=== PATIENT | female | born 1995 | race Two or more races ===

== ENCOUNTER 2018-12-20 11:40 | Inpatient (IN) | payer OTHER ==
[~2018-12-20] VITALS: Ht 170.2 cm; Wt 92.2 kg
[2018-12-20] VITALS (10 sets, daily range): BP systolic 109–118; BP diastolic 61–69; PULSE 68–73; RESP 19–20; Ht 170.2 cm; Wt 92.2 kg
[2018-12-20] MEDS ORDERED: PNV11TAB PO (11:58)
[2018-12-20] MEDS ORDERED: MISOPROSTOL 200 MCG TAB PR PRN ×2 (12:30→19:30)
[2018-12-20] MEDS ORDERED: CEFAZOLIN 2 GM/50 ML (PMX) 50 ML IVPB SCH (12:30)
[2018-12-20] MEDS ORDERED: OXYTOCIN 30 UNITS/LR 500 ML IV SCH ×2 (12:30→19:01)
[2018-12-20] MEDS ORDERED: METHYLERGONOVINE 0.2 MG INJ IM PRN ×2 (12:30→19:30)
[2018-12-20] MEDS ORDERED: OXYTOCIN 30 UNITS/LR 500 ML IV PRN ×2 (12:30→19:30)
[2018-12-20] MEDS ORDERED: CARBOPROST 250 MCG INJ IM PRN ×2 (12:30→19:30)
[2018-12-20] MEDS ORDERED: ONDANSETRON 4 MG INJ IV ONE (16:00)
[2018-12-20] MEDS ORDERED: METOCLOPRAMIDE 10 MG INJ IV ONE (16:00)
[2018-12-20] MEDS ORDERED: FAMOTIDINE 20 MG INJ IV ONE (16:00)
[2018-12-20] MEDS: LACTATED RINGER'S 1,000 ML IV SCH ×2 (16:32→16:59)
--- NOTE | 2018-12-20 16:36 | PREAC ---
Date/Time of Note Date/Time of Note DATE: 12/20/18 TIME: 16:34 Anesthesia Eval and Record Evaluation Time Pre-Procedure Interview DATE: 12/20/18 TIME: 16:34 Age 23 Sex female NPO: 8 hrs Preoperative diagnosis term Planned procedure previous Csection Past Medical History Past Medical History: None : : (5) Surgery & Anesthesia Issues No known issue Meds Anticoagulation: No Beta Shekhar within 24 hr: No Reason Beta Shekhar not given: Pt. not on B-Shekhar Reported Medications [id number] ( 19) 1 Each Tablet, 1 TAB PO DAILY, TAB 12/20/18 Current Medications Lactated Ringer's 1,000 ml @ 125 mls/hr Q8H IV Last administered on 12/20/18at 16:32; Admin Dose 125 MLS/HR; Start 12/20/18 at 12:24 Cefazolin Sodium/ Dextrose 50 ml @ 100 mls/hr ONCE IVPB ; Start 12/20/18 at 12:30 Oxytocin/Lactated Ringer's 500 ml @ 125 mls/hr POST IV ; Start 12/20/18 at 12:30 Oxytocin/Lactated Ringer's 500 ml @ 0 mls/hr ONCE PRN IV .VAGINAL BLEEDING; Start 12/20/18 at 12:30 Methylergonovine Maleate (Methergine) 0.2 mg ONCE PRN IM .VAGINAL BLEEDING; Start 12/20/18 at 12:30 Carboprost Tromethamine (Hemabate) 250 mcg ONCE PRN IM .VAGINAL BLEEDING; Start 12/20/18 at 12:30 Misoprostol (Cytotec) 1,000 mcg ONCE PRN [place] .VAGINAL BLEEDING; Start 12/20/18 at 12:30 Meds reviewed: Yes Allergies Coded Allergies: No Known Allergy (Unverified , 12/20/18) Allergies Reviewed: Yes Labs/Studies Labs Reviewed: Reviewed by anesthesiologist Result Diagram: 12/20/18 1300 Laboratory Tests 12/20/18 13:00 Blood Bank Test 12/20/18 13:00 Antibody Identification Completed Antibody Screen POSITIVE Blood Type A POSITIVE Rh Immune Globulin Candidate NO test: Positive Pre-procedure Exam Last vitals Vital Signs Date Temp Pulse Resp B/P (MAP) Pulse Ox O2 O2 Flow FiO2 Time Delivery Rate 12/20/18 98.3 73 109/61 11:56 (77) Airway: Adequate mouth opening, Adequate thyromental dist Mallampati: Mallampati III Teeth: Normal Lung: Normal Heart: Normal ASA Physical Status ASA physical status: 2 Emergency: None Planned Anesthetic Neuraxial: Spinal Planned Pain Management Sub-arachniod narcotics, Parenteral pain med, Other neuraxial med Pre-operative Attestations Prior to commencing anesthesia and surgery, the patient was re-evaluated, there was verification of: *The patient's identity *The results of appropriate recent lab work and preoperative vital signs *The above evaluation not changing prior to induction *Anesthetic plan, risk benefits, alternative and complications discussed with patient/family; questions answered; patient/family understands, accepts and wis hes to proceed. JAIRO CENTENO MD Dec 20, 2018 16:35
[2018-12-20] MEDS ORDERED: morphine SULFATE/PF (10 MG/10 ML) INJ ONE (16:54)
[2018-12-20] MEDS ORDERED: OXYTOCIN 10 UNIT INJ ONE (16:54)
[2018-12-20] MEDS ORDERED: BUPIVACAINE 0.75%/DEXT (SPINAL) 2 ML INJ ONE (16:58)
[2018-12-20] MEDS ORDERED: KETOROLAC 30 MG INJ IV PRN ×2 (17:00)
[2018-12-20] MEDS ORDERED: DIPHENHYDRAMINE 50 MG INJ IV PRN ×2 (17:00)
[2018-12-20] MEDS ORDERED: HYDROmorphONE 0.5 MG/0.5 ML SYG IV PRN ×2 (17:00)
[2018-12-20] MEDS ORDERED: ZOLPIDEM 5 MG TAB PO PRN (17:00)
[2018-12-20] MEDS ORDERED: FENTAnyl 50 MCG/ML VIAL IV PRN ×2 (17:00)
[2018-12-20] MEDS ORDERED: HYDROmorphONE 1 MG/5 ML IV SYRINGE IV PRN ×3 (17:00)
[2018-12-20] MEDS ORDERED: ONDANSETRON 4 MG INJ IV PRN ×2 (17:00)
[2018-12-20] MEDS ORDERED: NALOXONE (0.4 MG/ML) INJ IV PRN (17:00)
--- NOTE | 2018-12-20 17:56 | PREOPHP ---
DATE OF ADMISSION: 12/20/2018 HISTORY OF PRESENT ILLNESS: This is a 23-year-old lady, 8, para 4 with 3 spontaneous abortio ns. Her EDC is 12/30/2018 at 38 and 3/7 weeks, admitted to labor and delivery area in early labor. She started to have contractions about a few hours prior to admission with some bloody discharge. Jeff marshall had care couple of times in my [place] office and the care was uneventful. She h ad 4 C-sections. She is for repeat . She is not for the tubal ligation. Also, this patien t was informed about the risks of placenta accreta and bleeding that she may go for hyster ectomy and patient is aware, so she signed the consent for repeat plus possible hysterectom y. The procedures were explained to her and she understood everything totally. The risks, benefits and alternatives were discussed with her as well. PAST PERSONAL HISTORY: No history of TB, asthma. ALLERGIES: NO ALLERGIES. SOCIAL HISTORY: The patient does not smoke. She does not drink. MEDICATIONS: She does not take any drugs except her: 1. Iron. 2. Vitamins. GYNECOLOGIC HISTORY: She had menarche at the age of 13, every 28 days interval, 3 to 4 days duration and moderate in amount. FAMILY HISTORY: Noncontributory. OBSTETRIC HISTORY: She is 8, para 4. Her first delivery was in 2011, second 2012, third 201 , fourth 2016; all by C-sections. She had 3 spontaneous abortions. The patient does not remember w hen. REVIEW OF SYSTEMS: CARDIOVASCULAR: No chest pains. RESPIRATORY: No cough. GASTROINTESTINAL: No diarrhea, no vomiting. GENITOURINARY: No dysuria. PHYSICAL EXAMINATION: GENERAL: Reveals a conscious, coherent lady and in no acute distress. VITAL SIGNS: Her blood pressure 120/80, pulse rate 80 per minute, respirations 16 per minute. BREASTS, HEART AND LUNGS: Within normal limits. ABDOMEN: Soft. No tenderness noted. Fundic height is 37 cm. heart tones are 140 per minute. PELVIC: On admission revealed the cervix to be 1 cm dilated and thick, station floating, in cephalic presentation with the bag of water intact. EXTREMITIES: No pedal edema. GENITOURINARY: Vaginal spotting noted. ADMITTING DIAGNOSIS: A 38 and 3/7 weeks' intrauterine with 4 previous in early l abor. The patient was planned to have the above procedure. Dictated By: KANNAN DELGADO/LE Conf#: [id number] DID#: [id number]
[2018-12-20] MEDS ORDERED: LACTATED RINGER'S 1,000 ML IV SCH (19:01)
--- NOTE | 2018-12-20 19:01 | OPPN ---
Date/Time of Note Date/Time of Note DATE: 12/20/18 TIME: 18:57 Operative Report Planned Procedure Procedure date Dec 20, 2018 Procedure(s) REPEAT CSECTION Performed by see signature line Gold Frame Assembler: JUAN MIGUEL DE LA ROSA MD 2nd Gold Frame Assembler none Pre-procedure diagnosis 38 WEEKS 3 DAYS PREVIOUS CSECTION IN LABOR [id number] Anesthesia Type: [id number] spinal Post-Procedure Post-procedure diagnosis 38 WEEKS 3 DAYS PREVIOUS CSECTION IN LABOR Findings Live Baby GIRL, Apgars 9and 9, weight 7LBS 11OZ 19 1/2 INCHES Estimated Blood Loss: other (800) Specimen(s) PLACENTA Grafts/Implant(s) none Complication(s) none KANNAN VILLEDA MD Dec 20, 2018 19:01
[2018-12-20] MEDS ORDERED: LANOLIN HPA 1 PKT TOP PRN (19:30)
[2018-12-20] MEDS ORDERED: METHYLERGONOVINE 0.2 MG TAB PO PRN (19:30)
[2018-12-20] MEDS: SENNA/DOCUSATE NA (8.6MG/50MG) TAB PO SCH (21:00)
--- NOTE | 2018-12-20 21:59 | PAC ---
Date/Time of Note Date/Time of Note DATE: 12/20/18 TIME: 21:59 Post-Anesthesia Notes Post-Anesthesia Note Last documented vital signs Vital Signs Date Temp Pulse Resp B/P (MAP) Pulse Ox O2 O2 Flow FiO2 Time Delivery Rate 12/20/18 70 20 114/65 99 Room Air 21:00 (81) 12/20/18 98.0 19:30 Activity: WNL Respiratory function: WNL Cardiovascular function: WNL Mental status: Baseline Pain reasonably controlled: Yes Hydration appropriate: Yes Nausea/Vomiting absent: Yes JAIRO CENTENO MD Dec 20, 2018 21:59
[2018-12-21 01:20] VITALS: BP 103/65; PULSE 78; RESP 20
[2018-12-21 03:30] VITALS: BP 111/64; PULSE 76; RESP 21
[2018-12-21] MEDS: LACTATED RINGER'S 1,000 ML IV SCH ×3 (04:24→20:24)
[2018-12-21 08:00] VITALS: BP 108/59; PULSE 86; RESP 18
[2018-12-21] MEDS: SENNA/DOCUSATE NA (8.6MG/50MG) TAB PO SCH ×2 (09:03→21:20)
[2018-12-21 12:35] VITALS: BP 112/60; PULSE 80; RESP 20
[2018-12-21 15:31] VITALS: BP 109/51; PULSE 90; RESP 18
--- NOTE | 2018-12-21 17:43 | OPR ---
DATE OF OPERATION: 12/20/2018 PREOPERATIVE DIAGNOSIS: 38 and 4/7 weeks intrauterine in labor for previous secti on. POSTOPERATIVE DIAGNOSES: 1. 38 and 4/7 weeks intrauterine in labor for previous section. 2. Severe pelvic and abdominal adhesions. SURGEON: Kannan Shah MD SAP BW ARCHITECT: Sandrine Katz MD ANESTHESIA: Spinal. ANESTHESIOLOGIST: Dr. Gonzales. OPERATION PERFORMED: Repeat low transverse section plus lysis of severe pelvic and abdomina l adhesions. OPERATIVE TECHNIQUE: Under spinal anesthesia, the patient was prepped and draped in the usual fashio n for abdominal surgery. After checking for the effect of the anesthesia, the previous Pfannenstiel scars were excised. A 12 cm skin incision was performed. The incision was carried from the skin up to the fascia. Upon opening the skin up to the fascia, small blood vessels were noted to be oozing a nd these were all cauterized. Fascia was opened transversely followed by splitting the muscles verti fatemeh and the peritoneum vertically. Upon opening the abdominal cavity, the peritoneum was opened ab out 1 inch and a thick band of adhesion was noted from the anterior parietal peritoneum to the mid-po rtion of the uterus going to the lower uterine segment. All these adhesions had to be lysed by sharp and blunt dissection. Omentum was attached to the anterior parietal peritoneum as well. After lysi ng all these adhesions, then the bladder blade was put in place. A small juan was performed from the serosa up to the endometrium and the lower uterine segment and the juan was carried sideways with th e aid of my two fingers. My left hand was inserted in the lower segment of the uterus and the bag of water was ruptured. 1+ meconium stained amniotic fluid was noted. Baby's head was delivered and ba by's airways was quickly suctioned with amniotic fluid. The anterior shoulder, posterior shoulder an d rest of the body of the baby was delivered. Cord was clamped after 30 seconds. The baby's airways was quickly suctioned with amniotic fluid. Then, after 30 seconds, the cord was clamped and the bab y was handed to the NICU team. Cord blood was obtained. Placenta was delivered manually and complet e. The uterus was exteriorized. The uterus was cleansed with wet lap sponge to make sure that no fe sarah membranes were left behind. After correct sponge count, the uterus was closed in the usual fashi on using #1 chromic for the first layer. Continuous locking suture was used followed by #1 chromic f or the second layer and imbricating sutures were used. Bleeders were checked and there was no bleedi ng noted. After checking for any bleeders in which there were none, both tubes and ovaries were insp ected and they were healthy looking. Broad ligament were checked for any hematoma and there was none noted. Then the uterus was put back to the pelvic cavity. Once again, uterine incision was checked for any bleeders and there was no bleeding noted. After correct sponge count, needle count and inst rument count as confirmed by the solar energy technician and appeals representative, the abdomen was closed in the usual fashi on using 0 Vicryl for the peritoneum, 0 Vicryl for the muscles. For the fascia, 0 Vicryl continuous stitch was used followed by few [id number] suture. For the subcutaneous tissue, it was closed w ith 3-0 Vicryl. The skin was closed with 3-0 Vicryl, subcuticular suture was used. The patient santana rated the procedure well. After the , I did a manual exploration of the uterus from the vag chiara and about other 200 mL of clotted and unclotted blood were noted uterus was noted to be hypotonic , so that Hemabate was given after the blood clots were removed and at the same time Cytotec 1000 mcg was given per rectum, and the uterus contracted. The estimated blood loss total was about 800 mL, 6 00 mL after a and then another 200 mL after doing manual exploration of the uterus from the vagina after the . Dictated By: KANNAN DELGADO/LE Conf#: [id number] DID#: [id number]
[2018-12-21] MEDS: HYDROCODONE/APAP (5/325) TAB PO PRN (18:22)
[2018-12-21 19:50] VITALS: BP 112/68; PULSE 100; RESP 18
[2018-12-21] MEDS: IBUPROFEN 800 MG TAB PO PRN (21:25)
[2018-12-22] MEDS: HYDROCODONE/APAP (5/325) TAB PO PRN ×3 (00:49→22:11)
[2018-12-22 04:00] VITALS: BP 115/71; PULSE 93; RESP 18
[2018-12-22] MEDS: LACTATED RINGER'S 1,000 ML IV SCH (04:24)
[2018-12-22] MEDS: IBUPROFEN 800 MG TAB PO PRN ×2 (05:54→14:47)
[2018-12-22 08:18] VITALS: BP 102/52; PULSE 78; RESP 18
[2018-12-22] MEDS: SENNA/DOCUSATE NA (8.6MG/50MG) TAB PO SCH ×2 (08:31→21:53)
[2018-12-22] MEDS ORDERED: BISACODYL 10 MG SUPP PR ONE (11:00)
[2018-12-22] MEDS: MAGNESIUM HYDROXIDE 30ML CUP PO SCH ×2 (11:21→21:52)
[2018-12-22 16:31] VITALS: BP 109/62; PULSE 75; RESP 16
--- NOTE | 2018-12-22 17:19 | PN ---
Date/Time of Note Date/Time of Note DATE: 12/21/18 TIME: 10:00 Assessment/Plan VTE Prophylaxis Risk score (from Ns)>0 risk: 3 SCD applied (from [facility]): No SCD contraindicated: low risk/ambulating Pharmacological prophylaxis: NA/contraindicated Pharm contraindication: low risk/ambulating Lines/Catheters [facility]from [facility] Saline Lock Assessment/Plan Assessment/Plan POSTCSECTION DAY 1 ORDERED ADVANCE DIET TOLERATED CBC ON 3RD POSTOP DAY Result Diagram: 12/22/18 0632 12/21/18 0729 Results 24hrs Laboratory Tests Test 12/22/18 06:32 White Blood Count 10.3 # Red Blood Count 3.32 L Hemoglobin 9.6 L Hematocrit 29.5 L Mean Corpuscular Volume 88.9 Mean Corpuscular Hemoglobin 28.9 L Mean Corpuscular Hemoglobin Concent 32.5 Red Cell Distribution Width 17.5 H Platelet Count 140 Mean Platelet Volume 11.9 H Immature Granulocytes % 0.500 H Neutrophils % 81.8 H Lymphocytes % 9.3 L Monocytes % 7.3 Eosinophils % 0.9 Basophils % 0.2 Nucleated Red Blood Cells % 0.0 Immature Granulocytes # 0.050 H Neutrophils # 8.4 H Lymphocytes # 1.0 Monocytes # 0.8 Eosinophils # 0.1 Basophils # 0.0 Nucleated Red Blood Cells # 0.0 Subjective 24 Hr Interval Summary Free Text/Dictation POST CSECTION DAY 1 COMPLAIN OF INCISIONAL PAINS GOOD URINE OUTPUT PASSING GAS PER RECTUM NO BOWEL MOVEMENT YET Exam/Review of Systems Exam Vitals Vital Signs Date Temp Pulse Resp B/P (MAP) Pulse Ox O2 O2 Flow FiO2 Time Delivery Rate 12/22/18 98.4 75 16 109/62 Room Air 16:31 (78) 12/21/18 98 15:31 Intake and Output 12/21/18 12/21/18 12/22/18 1515:00 23:00 07:00 IntakeIntake Total 2330 ml 605 ml 440 ml OutputOutput Total 1250 ml 900 ml 1300 ml BalanceBalance 1080 ml -295 ml -860 ml Exam VITAL SIGNS STABLE: YES AFEBRILE: YES BREAST NOT ENGORGED, NON-TENDER, NO APPRECIABLE MASS: YES LUNGS CLEAR, NO RALES, WHEEZES, RHONCHI: YES SINUS RHYTHM WITHOUT MURMUR: YES ABDOMEN: NON-TENDER FUNDUS: BELOW UMBILICUS BOWEL SOUNDS: PRESENT UTERUS: FIRM INCISION (CLEAN, DRY, AND INTACT): YES LOCHIA: LIGHT DEEP TENDON REFLEXES: 0 EXTREMITIES: NO CALF TENDERNESS EDEMA SCALE: NONE Results Results 24hrs Laboratory Tests Test 12/22/18 06:32 White Blood Count 10.3 # Red Blood Count 3.32 L Hemoglobin 9.6 L Hematocrit 29.5 L Mean Corpuscular Volume 88.9 Mean Corpuscular Hemoglobin 28.9 L Mean Corpuscular Hemoglobin Concent 32.5 Red Cell Distribution Width 17.5 H Platelet Count 140 Mean Platelet Volume 11.9 H Immature Granulocytes % 0.500 H Neutrophils % 81.8 H Lymphocytes % 9.3 L Monocytes % 7.3 Eosinophils % 0.9 Basophils % 0.2 Nucleated Red Blood Cells % 0.0 Immature Granulocytes # 0.050 H Neutrophils # 8.4 H Lymphocytes # 1.0 Monocytes # 0.8 Eosinophils # 0.1 Basophils # 0.0 Nucleated Red Blood Cells # 0.0 Medications Medication Current Medications Cefazolin Sodium/ Dextrose 50 ml @ 100 mls/hr ONCE IVPB ; Start 12/20/18 at 12:30 Oxytocin/Lactated Ringer's 500 ml @ 125 mls/hr POST IV Last administered on 12/20/18at 19:59; Admin Dose 125 MLS/HR; Start 12/20/18 at 12:30 Oxytocin/Lactated Ringer's 500 ml @ 0 mls/hr ONCE PRN IV .VAGINAL BLEEDING; Start 12/20/18 at 12:30 Methylergonovine Maleate (Methergine) 0.2 mg Q6H PRN PO .VAGINAL BLEEDING; Start 12/20/18 at 19:30 Acetaminophen/ Hydrocodone Bitart ([place] (5/325)) 1 tab Q4H PRN PO .PAIN 4-6 Last administered on 12/22/18at 15:39; Admin Dose 1 TAB; Start 12/20/18 at 19:30 Acetaminophen/ Hydrocodone Bitart ([place] (5/325)) 2 tab Q4H PRN PO .PAIN 7-10 Last administered on 12/22/18at 00:49; Admin Dose 2 TAB; Start 12/20/18 at 19:30 Ibuprofen (Motrin) 800 mg Q8 PRN PO MILD PAIN LEVEL 1-3 Last administered on 12/22/18 14:47; Admin Dose 800 MG; Start 12/21/18 at 18:00 Simethicone (Mylicon) 160 mg Q8H PRN PO .GAS Last administered on 12/22/18 14:48; Admin Dose 160 MG; Start 12/20/18 at 19:30 Senna/Docusate Sodium (Senokot-S) 1 tab BID PO Last administered on 12/22/18 08:31; Admin Dose 1 TAB; Start 12/20/18 at 21:00 Lanolin (Lanolin Hpa) 1 applic BEDSIDE MEDICATION PRN TOP .NIPPLES Last admi nistered on 12/22/18 15:39; Admin Dose 1 APPLIC; Start 12/20/18 at 19:30 Diphtheria/ Tetanus/Acell Pertussis (Adacel) 0.5 ml ONCE ONCE IM* ; Start 12/23/18 at 09:00; Stop 12/23/18 at 09:01 Measles/Mumps/ Rubella Vaccine Live (Mmr Ii Vaccine) 0.5 ml ONCE ONCE SC* ; Start 12/23/18 at 09:00; Stop 12/23/18 at 09:01 Oxytocin/Lactated Ringer's 500 ml @ 0 mls/hr ONCE PRN IV .VAGINAL BLEEDING; Start 12/20/18 at 19:30 Methylergonovine Maleate (Methergine) 0.2 mg ONCE PRN IM .VAGINAL BLEEDING; Start 12/20/18 at 19:30 Carboprost Tromethamine (Hemabate) 250 mcg ONCE PRN IM .VAGINAL BLEEDING; Start 12/20/18 at 19:30 Misoprostol (Cytotec) 1,000 mcg ONCE PRN [place] .VAGINAL BLEEDING; Start 12/20/18 at 19:30 Magnesium Hydroxide (Milk Of Mag) 30 ml BID PO Last administered on 12/22/18 11:21; Admin Dose 30 ML; Start 12/22/18 at 11:00 KANNAN VILLEDA MD Dec 22, 2018 17:19
--- NOTE | 2018-12-22 17:20 | PN ---
Date/Time of Note Date/Time of Note DATE: 12/22/18 TIME: 17:19 Assessment/Plan VTE Prophylaxis Risk score (from Ns)>0 risk: 3 SCD applied (from Ns): No SCD contraindicated: low risk/ambulating Pharmacological prophylaxis: NA/contraindicated Pharm contraindication: low risk/ambulating Lines/Catheters IV Catheter Type (from Nrsg): Saline Lock Assessment/Plan Assessment/Plan POST CSECTION DAY 2 CHRONIC IRON DEFICIENCY ANEMIA HOME TOMORROW CBC TOMORROW COUNSELED INSTRUCTED PRESCRIPTION GIVEN FOR PAIN RETURN TO CLINIC IN 2 WEEKS CALL OFFICE IF THERE IS ANY PROBLEM OR CONCERN CONTINUE WITH VITAMINS OD AND FERROUS SULFATE 325MG PO TID DIET ADVISED Result Diagram: 12/22/18 0632 12/21/18 0729 Results 24hrs Laboratory Tests Test 12/22/18 06:32 White Blood Count 10.3 # Red Blood Count 3.32 L Hemoglobin 9.6 L Hematocrit 29.5 L Mean Corpuscular Volume 88.9 Mean Corpuscular Hemoglobin 28.9 L Mean Corpuscular Hemoglobin Concent 32.5 Red Cell Distribution Width 17.5 H Platelet Count 140 Mean Platelet Volume 11.9 H Immature Granulocytes % 0.500 H Neutrophils % 81.8 H Lymphocytes % 9.3 L Monocytes % 7.3 Eosinophils % 0.9 Basophils % 0.2 Nucleated Red Blood Cells % 0.0 Immature Granulocytes # 0.050 H Neutrophils # 8.4 H Lymphocytes # 1.0 Monocytes # 0.8 Eosinophils # 0.1 Basophils # 0.0 Nucleated Red Blood Cells # 0.0 Subjective 24 Hr Interval Summary Free Text/Dictation POST CSECTION DAY 2 LITTLE BOWEL MOVEMENT GOOD URINE OUTPUT FEELS LESS INCISIONAL PAINS Exam/Review of Systems Exam Vitals Vital Signs Date Temp Pulse Resp B/P (MAP) Pulse Ox O2 O2 Flow FiO2 Time Delivery Rate 12/22/18 98.4 75 16 109/62 Room Air 16:31 (78) 12/21/18 98 15:31 Intake and Output 12/21/18 12/21/18 12/22/18 1515:00 23:00 07:00 IntakeIntake Total 2330 ml 605 ml 440 ml OutputOutput Total 1250 ml 900 ml 1300 ml BalanceBalance 1080 ml -295 ml -860 ml Exam VITAL SIGNS STABLE: YES AFEBRILE: YES BREAST NOT ENGORGED, NON-TENDER, NO APPRECIABLE MASS: YES LUNGS CLEAR, NO RALES, WHEEZES, RHONCHI: YES SINUS RHYTHM WITHOUT MURMUR: YES ABDOMEN: NON-TENDER FUNDUS: BELOW UMBILICUS BOWEL SOUNDS: PRESENT UTERUS: FIRM INCISION (CLEAN, DRY, AND INTACT): YES LOCHIA: LIGHT DEEP TENDON REFLEXES: 0 EXTREMITIES: NO CALF TENDERNESS EDEMA SCALE: NONE Results Results 24hrs Laboratory Tests Test 12/22/18 06:32 White Blood Count 10.3 # Red Blood Count 3.32 L Hemoglobin 9.6 L Hematocrit 29.5 L Mean Corpuscular Volume 88.9 Mean Corpuscular Hemoglobin 28.9 L Mean Corpuscular Hemoglobin Concent 32.5 Red Cell Distribution Width 17.5 H Platelet Count 140 Mean Platelet Volume 11.9 H Immature Granulocytes % 0.500 H Neutrophils % 81.8 H Lymphocytes % 9.3 L Monocytes % 7.3 Eosinophils % 0.9 Basophils % 0.2 Nucleated Red Blood Cells % 0.0 Immature Granulocytes # 0.050 H Neutrophils # 8.4 H Lymphocytes # 1.0 Monocytes # 0.8 Eosinophils # 0.1 Basophils # 0.0 Nucleated Red Blood Cells # 0.0 Medications Medication Current Medications Cefazolin Sodium/ Dextrose 50 ml @ 100 mls/hr ONCE IVPB ; Start 12/20/18 at 12:30 Oxytocin/Lactated Ringer's 500 ml @ 125 mls/hr POST IV Last administered on 12/20/18at 19:59; Admin Dose 125 MLS/HR; Start 12/20/18 at 12:30 Oxytocin/Lactated Ringer's 500 ml @ 0 mls/hr ONCE PRN IV .VAGINAL BLEEDING; Start 12/20/18 at 12:30 Methylergonovine Maleate (Methergine) 0.2 mg Q6H PRN PO .VAGINAL BLEEDING; Start 12/20/18 at 19:30 Acetaminophen/ Hydrocodone Bitart ([place] (5/325)) 1 tab Q4H PRN PO .PAIN 4-6 Last administered on 12/22/18at 15:39; Admin Dose 1 TAB; Start 12/20/18 at 19:30 Acetaminophen/ Hydrocodone Bitart ([place] (5/325)) 2 tab Q4H PRN PO .PAIN 7-10 Last administered on 12/22/18at 00:49; Admin Dose 2 TAB; Start 12/20/18 at 19:30 Ibuprofen (Motrin) 800 mg Q8 PRN PO MILD PAIN LEVEL 1-3 Last administered on 12/22/18 14:47; Admin Dose 800 MG; Start 12/21/18 at 18:00 Simethicone (Mylicon) 160 mg Q8H PRN PO .GAS Last administered on 12/22/18 14:48; Admin Dose 160 MG; Start 12/20/18 at 19:30 Senna/Docusate Sodium (Senokot-S) 1 tab BID PO Last administered on 12/22/18 08:31; Admin Dose 1 TAB; Start 12/20/18 at 21:00 Lanolin (Lanolin Hpa) 1 applic BEDSIDE MEDICATION PRN [place] .NIPPLES Last administered on 12/22/18 15:39; Admin Dose 1 APPLIC; Start 12/20/18 at 19:30 Diphtheria/ Tetanus/Acell Pertussis (Adacel) 0.5 ml ONCE ONCE IM* ; Start 12/23/18 at 09:00; Stop 12/23/18 at 09:01 Measles/Mumps/ Rubella Vaccine Live (Mmr Ii Vaccine) 0.5 ml ONCE ONCE SC* ; Start 12/23/18 at 09:00; Stop 12/23/18 at 09:01 Oxytocin/Lactated Ringer's 500 ml @ 0 mls/hr ONCE PRN IV .VAGINAL BLEEDING; Start 12/20/18 at 19:30 Methylergonovine Maleate (Methergine) 0.2 mg ONCE PRN [place] .VAGINAL BLEEDING; Start 12/20/18 at 19:30 Carboprost Tromethamine (Hemabate) 250 mcg ONCE PRN IM .VAGINAL BLEEDING; Start 12/20/18 at 19:30 Misoprostol (Cytotec) 1,000 mcg ONCE PRN [place] .VAGINAL BLEEDING; Start 12/20/18 at 19:30 Magnesium Hydroxide (Milk Of Mag) 30 ml BID PO Last administered on 12/22/18at 11:21; Admin Dose 30 ML; Start 12/22/18 at 11:00 KANNAN VILLEDA MD Dec 22, 2018 17:20
[2018-12-22 20:45] VITALS: BP 101/58; PULSE 89; RESP 18
[2018-12-23] MEDS: IBUPROFEN 800 MG TAB PO PRN (00:08)
[2018-12-23 04:00] VITALS: BP 97/58; RESP 17
[2018-12-23] MEDS: HYDROCODONE/APAP (5/325) TAB PO PRN (05:58)
[2018-12-23 08:30] VITALS: BP 100/55; PULSE 70; RESP 18
[2018-12-23] MEDS ORDERED: DIPHTH/TET/ACEL PERTUSS (ADULT) 0.5 ML VIAL IM* ONE (09:00)
[2018-12-23] MEDS ORDERED: MEASLES,MUMPS,RUBELLA VACCINE INJ SC* ONE (09:00)
[2018-12-23] MEDS: MAGNESIUM HYDROXIDE 30ML CUP PO SCH (09:34)
[2018-12-23] MEDS: SENNA/DOCUSATE NA (8.6MG/50MG) TAB PO SCH (09:35)
== END 2018-12-23 12:20 | disposition home or self-care (01) | DRG 788 ==
LOC: OBT 11:40 → L-D 11:40 → OBT 12:32 → L-D 18:25 → PP1 21:48
PROVIDERS: ADMIT Obstetrics & Gynecology; ATTEND Obstetrics & Gynecology
PROC: 0DNW0ZZ Release Peritoneum, Open Approach (ICD-10-PCS; 2018-12-20)
PROC: 10D00Z1 Extraction of Products of Conception, Low, Open Approach (ICD-10-PCS; principal; 2018-12-20 15:30)
DX: O34.211 Maternal care for low transverse scar from previous cesarean delivery (principal); O99.89 Other specified diseases and conditions complicating pregnancy, childbirth and the puerperium; N73.6 Female pelvic peritoneal adhesions (postinfective); O99.02 Anemia complicating childbirth; D50.9 Iron deficiency anemia, unspecified; Z3A.38 38 weeks gestation of pregnancy; Z37.0 Single live birth
CPT/HCPCS: 80048; 80307; 85025; 85610; 85730; 86592; 86850; 86870; 86900; 86901; 86902; 86920; 87340; 88305; 90715; 99464; G0463; J0690; J1170; J1200; J1885; J2210; J2274; J2405; J2590; J2765; J7120